=== PATIENT | female | born 1980 | race Caucasian/White ===

== ENCOUNTER 2020-06-04 14:15 | Emergency (ER) | payer MEDICAID ==
[~2020-06-04] VITALS: Ht 177.8 cm; Wt 100.3 kg
[2020-06-04 14:23] VITALS: BP 152/82
--- NOTE | 2020-06-04 15:29 | NUR ---
RECRUITMENT [employer]NSHIP: PT AMBULATORY TO ROOM FROM LOBBY
[2020-06-04] MEDS ORDERED: ACETAMINOPHEN 325 MG TABLET PO ONE (16:00)
[2020-06-04] MEDS ORDERED: ACETAMINOPHEN 325 MG TABLET ONE (16:31)
--- NOTE | 2020-06-04 17:13 | NUR ---
SPLINT BEING DONE AT THIS TIME. PT HAS BEEN MEDICATED PER EMAR FOR PAIN.
== END 2020-06-04 17:37 | disposition home or self-care (01) ==
LOC: ED 16:53
DX: O26.891 Other specified pregnancy related conditions, first trimester (principal); G89.11 Acute pain due to trauma; M25.531 Pain in right wrist; F17.210 Nicotine dependence, cigarettes, uncomplicated; Z3A.08 8 weeks gestation of pregnancy; W01.0XXA Fall on same level from slipping, tripping and stumbling without subsequent striking against object, initial encounter; Y93.89 Activity, other specified; Y92.098 Other place in other non-institutional residence as the place of occurrence of the external cause; Y99.8 Other external cause status
CPT/HCPCS: 29125; 99283